=== PATIENT | female | born 1980 | race Caucasian/White ===

== ENCOUNTER 2023-10-07 19:16 | Emergency (ER) | payer MEDICAID, SELFPAY ==
[2023-10-07 19:18] VITALS: BP 122/87; PULSE 80; RESP 18; TEMP 36.6; O2SAT 98; BMI 42.1
--- NOTE | 2023-10-07 19:26 | RAD_ITS ---
EXAM: XR LEFT KNEE COMPLETE, 4 OR MORE VIEWS CLINICAL INDICATION: INJURY pain. TECHNIQUE: Four or more views of the left knee. COMPARISON: No relevant prior studies available. FINDINGS: BONES/JOINTS: Marginal osteophytes of the weightbearing compartments and the patellofemoral compartment. Perhaps trace joint effusion. Mild medial weightbearing compartment joint space narrowing. No acute fracture. No subluxation. Normal alignment. No sclerotic or destructive changes observed. SOFT TISSUES: No significant abnormality. No soft tissue swelling or gas. No radiopaque foreign body. RAD/Knee 4 or More Views IMPRESSION: 1. Perhaps trace joint effusion. 2. Degenerative changes. No acute fracture is seen. Electronically Signed: Ashwin Hill DO at 20:13 EST ,
--- NOTE | 2023-10-07 20:46 | ED.VIS.LOWEX ---
HPI History of Present Illness HPI Narrative: Patient presents with left knee pain that occurred today. Patient states she was going up some stairs and accidentally twisted her knee. Patient is unsure if she felt a pop. Patient describes her pain as aching but sharp at times. Patient states it is worse with certain movements. Patient denies falling. Patient denies any paresthesias or weakness. Patient also complains of a frontal headache. Patient states she has had similar headaches in the past. Patient states that it is gradually gotten worse throughout the day today. Patient admits to some nausea and vomiting. Patient also admits to a cough. Chief Complaint: Headache Informant: patient Onset/Context/Timing Onset: Today Context: Sudden Onset Timing: Continuous Quality of Pain: Sharp (At times) and Dull Worsened by: Certain movements Relieved by: Nothing Associated Symptoms Associated Symptoms: Negative for Parasthesia, Weakness or Loss of Funtion PFSH PFSH Medical History no medical history Allergy/AdvReac Type Severity Reaction Status Date / Time sulfamethoxazole Allergy Severe Anaphylaxis Verified 10/07/23 19:21 [From Bactrim] trimethoprim [From Bactrim] Allergy Severe Anaphylaxis Verified 10/07/23 19:21 aspirin [From Tereza Aspirin] Allergy Mild Itching Verified 10/07/23 19:21 Social History Smoking Status: Current every day smoker tobacco type: cigarettes ROS ROS ED Constitutional Constitutional ED: Denies chills or fever(s) Eyes Eyes: Denies blurry vision or change in vision ENT ENT ED: Denies rhinorrhea or sore throat Cardiovascular Cardiovascular: Denies chest pain or palpitations Respiratory/Chest Respiratory/Chest: Reports cough; Denies dyspnea Gastrointestinal Gastrointestinal: Reports nausea and vomiting Genitourinary Genitourinary ED: Denies dysuria or hematuria Musculoskeletal Musculoskeletal: Denies back pain or neck pain Integumentary Denies abscess or rash Neurologic Neurologic: Reports headache(s); Denies weakness Allergic/Immunologic Allergic/Immunologic ED: Denies mouth swelling or urticaria EXAM Physical Exam Const Vital Signs: 10/07/23 19:18 Temperature 97.9 F Temperature Source Temporal Pulse Rate 80 Respiratory Rate 18 Blood Pressure 122/87 H Blood Pressure Mean 98 Pulse Ox 98 Oxygen Delivery Method Room Air Positive well nourished and well developed General Appearance ED: well developed and NAD HEENT Reports moist mucous membranes normocephalic and atraumatic Neck full ROM and supple Resp normal respiratory effort and clear to auscultation bilaterally Cardio regular rate and regular rhythm GI non-tender and non-distended Palpation: soft Extremity Extremity Narrative: There is tenderness over the left knee. There is no effusion. There is no edema or ecchymosis. Range of motion was slightly limited in complete flexion secondary to pain. There is some mild joint line pain with Radha testing. There is no laxity appreciated. Varus and valgus stress test were negative. Will's test was negative. Pedal pulses are equal bilaterally. Strength is 5/5 bilaterally in the lower extremities. Extensor mechanism is intact. There are no sensory deficits noted. There is no calf tenderness noted. Neuro oriented x3, CN's II-XII intact bilaterally, moves all extremities and no sensory deficits noted Sensorium / Orientation: alert Motor Exam: strength 5/5 throughout Psych mental status grossly normal MDM MDM MDM Narrative Medical decision making narrative: Differential diagnosis includes left knee sprain, internal derangement, occult fracture, migraine headache, and tension headache. X-rays of the left knee will be obtained to assess for occult fracture. Radiography Diagnostic Testing: Clinical Impression(s) from Imaging Studies Knee X-Ray 10/07/23 19:26 IMPRESSION: 1. Perhaps trace joint effusion. 2. Degenerative changes. No acute fracture is seen. Electronically Signed: Ashwin Hill DO at 20:13 EST , X-rays of the left knee were obtained. There are 4 views. On my independent interpretation, there is no acute fracture. There are some degenerative changes noted. Radiologist also interpreted the x-ray and agrees. Treatment and Re-Evaluation Narrative: Patient was advised of her findings. Patient was requesting Tylenol for pain. Patient was given a dose of Tylenol. Patient was instructed to follow-up with her primary care physician in 5 to 7 days. Patient was instructed return if worse in any way. Patient understood and was agreeable with the plan. All questions were answered. Discharge Plan Triage Chief Complaint: Headache ED Provider: Michael Santiago Dx/Rx/DC Orders Clinical Impression: Sprain of unspecified site of left knee, initial encounter, Headache Instructions: ED Headache Unspecified, ED Knee Sprain Primary Care Provider: Care Physician,No Primary Referrals: [facility] [Non-Staff] - 5-7 Days NOT,DEFINED [Non-Staff] - Disposition Disposition: Home, Self Care
[2023-10-07] MEDS: Acetaminophen 500 MG Tablet 1000 MG PO (20:57)
[2023-10-07 20:59] VITALS: PULSE 74; RESP 14
== END 2023-10-07 20:59 | disposition home or self-care (01) ==
PROVIDERS: Emergency Provider Emergency Medicine; Visit Provider Emergency Medicine
DX: S83.92XA Sprain of unspecified site of left knee, initial encounter (principal); R51.9 Headache, unspecified; F17.210 Nicotine dependence, cigarettes, uncomplicated; X58.XXXA Exposure to other specified factors, initial encounter
CPT/HCPCS: 73564; 99282

== ENCOUNTER 2023-10-08 06:40 | Emergency (ER) | payer MEDICAID, SELFPAY ==
[2023-10-08 06:41] VITALS: BP 119/77; PULSE 84; RESP 20; TEMP 36.4; O2SAT 97; BMI 41.5
--- NOTE | 2023-10-08 07:05 | ED.RN ---
THIS RN IS TAKING OVER CARE OF THIS PATIENT AT 0705, AUTOMOBILE LOCATOR RAJNI INFORMS PATIENT OF NO-TRESPASS ORDER AGAINST THIS PATIENT FROM DISCHARGE SITUATION EARLIER THIS MORNING AND TO NOTIFY IF PATIENT CAUSES DIFFICULTY UPON DISCHARGE THIS MORNING.
--- NOTE | 2023-10-08 07:16 | EX.ED.DYSGE1 ---
HPI History of Present Illness Chief Complaint: General Illness Detail of Chief Complaint: Patient is homeless and wants a place to stay. Informant: patient Narrative Narrative: 42-year-old female was thrown out of [address] for some reason. States she is homeless and has no place to stay. She was in the emergency department last night was evaluated. When she was discharged she would not leave and then to call the police to escort her off the premises. Prior similar symptoms: Yes PFSH PFSH Allergy/AdvReac Type Severity Reaction Status Date / Time sulfamethoxazole Allergy Severe Anaphylaxis Verified 10/08/23 06:40 [From Bactrim] trimethoprim [From Bactrim] Allergy Severe Anaphylaxis Verified 10/08/23 06:40 aspirin [From Tereza Aspirin] Allergy Mild Itching Verified 10/08/23 06:40 Social History Smoking Status: Current every day smoker tobacco type: cigarettes ROS ROS ED ROS Narrative Denies recent illness. Review of Systems ROS Unobtainable: Denies due to encephalopathy Constitutional Constitutional ED: Denies chills or fever(s) Eyes Eyes: Denies blurry vision ENT ENT ED: Denies ear pain Respiratory/Chest Respiratory/Chest: Denies cough or dyspnea Gastrointestinal Gastrointestinal: Denies abdominal pain Genitourinary Genitourinary ED: Denies dysuria or hematuria Musculoskeletal Musculoskeletal: Denies arthralgias Integumentary Denies abscess Neurologic Neurologic: Denies paresthesias Psychiatric Psychiatric: Denies anxiety Endocrine Endocrinology: Denies cold intolerance Hematologic/Lymphatic Hematologic/Lymphatic: Reports none Allergic/Immunologic Allergic/Immunologic ED: Denies mouth swelling or tongue swelling EXAM Physical Exam Narrative Exam Narrative: Well-appearing 42-year-old female. Vital signs are stable afebrile. H EENT exam unremarkable. Moist mucous membranes. Neck nontender no lymphadenopathy. Lungs clear to auscultation bilaterally. Heart regular rhythm no murmur. Abdomen is soft and nontender. Normal bowel sounds no peritoneal signs. Moving all 4 extremities. Nontender no edema. Normal strength. Normal range of motion. Neurologically she is awake and alert with no focal motor deficits. Back nontender. Benign exam. Const Vital Signs: 10/08/23 06:41 10/08/23 06:51 Temperature 97.6 F L Temperature Source Temporal Pulse Rate 84 Respiratory Rate 20 H Respiratory Effort Normal Non-Labored Respiratory Pattern Normal Blood Pressure 119/77 Blood Pressure Mean 91 Pulse Ox 97 Oxygen Delivery Method Room Air Positive well nourished and well developed; Negative for cachectic, contractures or unkempt General Appearance ED: well developed and NAD; Negative for unkempt, cachectic, contractures, cyanotic, diaphoretic or pallor Nutritional Appearance: Negative for cachectic HEENT Reports moist mucous membranes; Denies dry mucous membranes Negative for trauma or tenderness Mouth ED: No dry mucous membranes Mouth: No dry mucous membranes Eyes PERRL and EOMs intact bilaterally General Eye ED: Negative for pale conjunctiva, scleral icterus or other Neck no lymphadenopathy, supple and no JVD General: Negative for tenderness Lymph Lymphatic: Negative for other Chest Wall inspection of chest normal and palpation of chest normal Chest: Negative for other Resp normal respiratory effort and clear to auscultation bilaterally Effort and Inspection: Negative for retractions Auscultation: Negative for rales, rhonchi or wheezes Cardio regular rate, regular rhythm, S1 normal heart sound, S2 normal heart sound and no murmurs Palpation: Negative for palpable S3 or palpable S4 Rate: Negative for bradycardia or tachycardic Rhythm: Negative for abnormal rhythm GI normal to inspection, nondistended, normoactive bowel sounds, non-tender, non-distended and no masses Inspection: Negative for abdominal distention Auscultation: normoactive bowel sounds Palpation: soft; Negative for tender, guarding or rebound tenderness present Bladder / Kidney Exam: No other Back/Spine no CVA tenderness General Back: Negative for CVA tenderness Cervical Spine: Negative for cervical spine tenderness Thoracic Spine / Upper Back: Negative for thoracic spinal tenderness Lumbar Spine / Lower Back: Negative for lumbar spinal tenderness Extremity normal to inspection General Extremety ED: Negative for edema or tenderness General Extremity: Negative for edema Neuro oriented x3 and CN's II-XII intact bilaterally Sensorium / Orientation: alert; Negative for orientation impaired, lethargic or stuporous Motor Exam: strength 5/5 throughout; Negative for general weakness or strength abnormal Psych mental status grossly normal Appearance: Negative for unkempt or other Attitude: No agitated Mood & Affect: Negative for depressed, anxious or tearful Skin no rashes or lesions noted, no wounds and skin turgor normal General Skin Exam: elasticity normal; Negative for jaundice or pallor Lesions: No lesion noted Rashes: No rashes noted Trauma: Negative for abrasion Wounds: Negative for wounds noted MDM MDM MDM Narrative Medical decision making narrative: 42-year-old homeless patient was looking for a place to stay. Initially when she came in she was going to claim mental health issues. I spoke to her and explained that psychiatric hospitals are for people with specific psychiatric illness and that not a homeless assisted. She explained to me she really did not have a psychiatric issue then. Patient has a benign exam. She will be discharged. Discharge Plan Triage Chief Complaint: General Illness ED Provider: David Hidalgo Dx/Rx/DC Orders Clinical Impression: Homeless, History of hypothyroidism Primary Care Provider: Care Physician,No Primary Referrals: Jose J Hand MD [Non-Staff] - As Needed Care Physician,No Primary [Primary Care Provider] - Activity Restrictions/Additional Instructions: Call the local homeless shelters see what is available. Disposition Disposition: Home, Self Care
--- NOTE | 2023-10-08 07:59 | ED.RN ---
RN TO THE BEDSIDE TO DISCHARGE THE PATIENT. PT STATES DR SAID HE WAS GOING TO CALL AROUND FOR SOMEWHERE FOR HER TO GO. RN ASKED DR DUMONT ABOUT THIS, HE STATES HE DID NOT SAY THAT AND TO TELL THE PATIENT THAT SHE NEEDS TO CALL AROUND TO THE [facility] HERSELF. RN EXPLAINED THIS TO THE PATIENT AND GAVE EXAMPLES OF [facility], [facility], [facility] TO CALL. PT STATES SHE CAN NOT GO TO THE [facility] BECAUSE SHE HAS BEEN KICKED OUT, SHE CAN'T GO TO [facility] BECAUSE THEY DON'T DO INTAKE ON THE WEEKEND. RN APOLOGIZED MULTIPLE TIMES FOR THE SITUATION THE PATIENT IS EXPERIENCING AND STATES THAT THE WHO SAW HER IN THE MIDDLE OF THE NIGHT AND THE DISCHARGING DR BOTH FEEL SHE IS APPROPRIATE FOR DISCHARGE.RN OFFERED TO CALL THE [facility]ING [facility] TO SEE IF THEY WOULD BE ABLE TO SPEAK WITH THE PATIENT OVER THE PHONE TO GIVE HER ADDITIONAL RESOURCES AND ASKED PATIENT FOR HER CELL PHONE NUMBER THAT WAS SITTING ON HER LAP. PT STATES WHY DON'T YOU GIVE ME THE NUMBER AND I WILL CALL RN STATES I WOULD BE ABLE TO GET THROUGH TO THEM QUICKER, DO YOU WANT ME TO GIVE ME YOUR NUMBER? PT STATES NO BUT I WANT YOUR NAME .
== END 2023-10-08 08:12 | disposition home or self-care (01) ==
PROVIDERS: Emergency Provider Emergency Medicine; Visit Provider Emergency Medicine
DX: Z59.00 Homelessness unspecified (principal); F17.210 Nicotine dependence, cigarettes, uncomplicated
CPT/HCPCS: 99282

== ENCOUNTER 2023-10-24 20:26 | Emergency (ER) | payer MEDICAID, SELFPAY ==
[2023-10-24 20:27] VITALS: BP 121/90; PULSE 83; RESP 16; TEMP 36.5; O2SAT 97; BMI 42.6
--- NOTE | 2023-10-24 20:55 | EDS_ITS ---
HPI History of Present Illness Chief Complaint: General Illness Narrative Narrative: 43-year-old female presents via EMS with flulike symptoms that she has had for the last 3 days. States she has had bodyaches, muscle cramps, cough. She is a smoker. She also states that she feels dehydrated . However, she denies any nausea, vomiting, or diarrhea. [facility] Medical History Asthma Allergy/AdvReac Type Severity Reaction Status Date / Time sulfamethoxazole Allergy Severe Anaphylaxis Verified 10/24/23 20:31 [From Bactrim] trimethoprim [From Bactrim] Allergy Severe Anaphylaxis Verified 10/24/23 20:31 aspirin [From Tereza Aspirin] Allergy Mild Itching Verified 10/24/23 20:31 Social History Smoking Status: Current every day smoker tobacco type: cigarettes ROS ROS ED ROS Narrative Constitutional: No fever, no chills. Feels dehydrated . HEENT: No sore throat. No neck pain. No loss of vision. Positive rhinorrhea. Cardiovascular: No chest pain. No palpitations. No pedal edema. Respiratory: Positive cough, intermittent shortness of breath. Abdominal: No abdominal pain. No nausea. No vomiting. Genitourinary: No dysuria. No hematuria. Musculoskeletal: Multiple myalgias and arthralgias. Neurologic: No headaches. No dizziness. No lightheadedness. Skin: No rash. No change in color. Psychiatric: No depression. No anxiety. EXAM Physical Exam Narrative Exam Narrative: Afebrile. Vital signs noted. HEENT: Normocephalic. Atraumatic. PERRL, EOMI. Neck soft and supple. No point tenderness or step off. Mucous membranes moist. Cardiovascular: Regular rate and rhythm. No murmurs, rubs, or gallops appreciated. Respiratory: No tachypnea. Lungs clear to auscultation bilaterally. Gastrointestinal: Abdomen soft, nontender, with normoactive bowel sounds. No rebound or guarding. Neurological: Awake. Alert. Nonfocal, nonlateralizing. Skin: No rash. Normal color. No pallor. Musculoskeletal: No pedal edema. Full range of motion extremities. Const Vital Signs: 10/24/23 20:27 10/24/23 21:48 Temperature 97.7 F L Temperature Source Oral Pulse Rate 83 Respiratory Rate 16 Respiratory Effort Normal Respiratory Pattern Normal Blood Pressure 121/90 H Blood Pressure Mean 100 Pulse Ox 97 Oxygen Delivery Method Room Air MDM MDM MDM Narrative Medical decision making narrative: I reviewed the patient's prior ED visits. She was here 16 days ago. It was found that she was homeless, and wanted a place to stay. She refused to leave the premises after discharge and had to have the police escort her off the premises. After history and physical, she requested an IV be placed. I do not feel she requires any laboratory work or a bolus of IV fluids as she is tolerating p.o. because she brought a bottle of soda with her that is half- strength. Additionally, she is not tachycardic. She was swabbed for COVID, influenza, and RSV given her symptoms. I reviewed her respiratory swabs and they are negative. At this point in time, I feel she can be discharged to [facility]-up with [facility]. I do not feel she requires antibiotics, or blood work. She does not require observation or admission at this time. Disposition is discharged in stable condition. Discharge Plan Triage Chief Complaint: General Illness ED Provider: Kashmir Kirkland Dx/Rx/DC Orders Clinical Impression: Myalgia, Flu-like symptoms Instructions: ED Viral Syndrome (Adult) Primary Care Provider: Care Physician,No Primary Referrals: Miley Aragon [Non-Staff] - As Needed Care Physician,No Primary [Primary Care Provider] - Disposition Disposition: Home, Self Care
[2023-10-24 21:53] VITALS: BP 104/77; PULSE 75; RESP 16; TEMP 37.1; O2SAT 99
== END 2023-10-24 22:00 | disposition home or self-care (01) ==
PROVIDERS: Emergency Provider Emergency Medicine; Visit Provider Emergency Medicine
DX: M79.10 Myalgia, unspecified site (principal); R05.9 Cough, unspecified; F17.210 Nicotine dependence, cigarettes, uncomplicated; Z59.00 Homelessness unspecified
CPT/HCPCS: 87631; 99282